=== PATIENT | female | born 1985 | race Caucasian/White ===

== ENCOUNTER 2018-09-16 19:52 | Emergency (ER) | payer SELFPAY ==
[~2018-09-16] VITALS: Ht 167.6 cm; Wt 55.0 kg
[2018-09-16 19:55] VITALS: BP 123/77
[2018-09-16] MEDS ORDERED: ALPRAZOLAM 0.5 MG TABLET PO ONE (22:00)
[2018-09-16] MEDS ORDERED: MORPHINE SULFATE 10 MG/ML CPJ IM ONE (22:00)
== END 2018-09-16 21:53 | disposition left against medical advice (07) ==
LOC: ER 19:52
DX: S00.81XA Abrasion of other part of head, initial encounter (principal); F17.200 Nicotine dependence, unspecified, uncomplicated; F15.10 Other stimulant abuse, uncomplicated; Y08.89XA Assault by other specified means, initial encounter; Y93.89 Activity, other specified; Y92.89 Other specified places as the place of occurrence of the external cause; Y99.8 Other external cause status; Z90.89 Acquired absence of other organs
CPT/HCPCS: 99283